=== PATIENT | male | born 1935 | race Caucasian/White ===

== ENCOUNTER 2016-03-27 12:39 | Inpatient (IN) | payer MEDICARE ==
[~2016-03-27] VITALS: Ht 177.8 cm; Wt 105.1 kg
[2016-03-27] VITALS (15 sets, daily range): BP systolic 90–141; BP diastolic 39–63; PULSE 52–94; RESP 18–33; O2SAT 86–99
[~2016-03-27 12:39] MED LIST: ABIR250T PO; ATOR40TA69 PO; Acetaminophen PO; ESCI10TA52 PO; FINA5TAB9 PO; Fentanyl TOPICAL; HYDR-4003 PO; LOSA50TA37 PO; METH5TAB88 PO; NPH,100V11 SUBQ; OXYC-474 PO; OXYC5TAB72 PO; PRD5T PO; WARF5TAB PO; WARF5TAB7 PO
--- NOTE | 2016-03-27 12:44 | ED.REPORT ---
HPI-General Illness Date of Service Mar 27, 2016 ED Provider: Hunter King MD The patient is an 80 year old male with history of type 2 diabetes, diabetic neuropathy, presumed protein C deficiency, prior DVT in right leg, prior arterial embolization of the right arm due to PFO, chronic atrial fibrillation on anticoagulation therapy, coronary artery disease, tachybrady syndrome, permanent pacemaker, sleep apnea, hypertension and metastatic prostate cancer with de dinah metastatic disease, who was brought to the emergency department by EMS for a cough that began to worsen 2 days ago. He has also experienced chest congestion, shortness of breath, and a fever. He was recently admitted to the hospital and discharged to [facility] 1 week ago. He has had pneumonia multiple times in the past and his current symptoms are similar. Nursing Notes Stated Complaint: COUGH, TEMPERATURE Chief Complaint: Respiratory Complaints Nursing Notes Reviewed: Yes Allergies: Coded Allergies: onion (Verified Allergy, Mild, 03/27/16) Scheduled ([Fentanyl]) 1 PATCH PATCH 1 PATCH TOPICAL Q3D Abiraterone Acetate (Zytiga) 250 Mg Tablet 1,000 MG PO DAILY Atorvastatin Calcium (Atorvastatin Calcium) 40 Mg Tablet 40 MG PO DAILY Escitalopram Oxalate (Escitalopram Oxalate) 10 Mg Tablet 10 MG PO DAILY Finasteride (Finasteride) 5 Mg Tablet 5 MG PO DAILY Losartan Potassium (Losartan Potassium) 50 Mg Tablet 50 MG PO DAILY Methylphenidate (Methylphenidate) 5 Mg Tablet 5 MG PO BIDBL NPH, Human Insulin Isophane (HUMulin-N U100 Insulin Vial) 100 Unit/1 Ml Vial 55 UNIT SUBQ MORNING NPH, Human Insulin Isophane (HUMulin-N U100 Insulin Vial) 100 Unit/1 Ml Vial 35 UNIT SUBQ Evening Prednisone (PredniSONE) 5 Mg Tab 5 MG PO BIDWM Warfarin Sodium (Coumadin) 5 Mg Tablet 5 MG PO DAILY Warfarin Sodium (Warfarin Sodium) 5 Mg Tablet 5 MG PO DAILY Scheduled PRN ([Acetaminophen]) 325 MG TABLET 975 MG PO Q6H PRN PRN For Pain Hydrocodone-Acetaminophen 5-325 mg (Hydrocodone-Acetaminophen 5-325 mg) 1 Each Tablet 1 TABLET PO BID PRN PRN For Pain Oxycodone (Roxicodone) 5 Mg Tablet 5 MG PO DAILY PRN PRN For Pain oxyCODONE (oxyCODONE) 5 Mg Tablet 5-10 MG PO Q4H PRN PRN For Moderate Pain General Time Seen by MD: 12:42 Chief Complaint Cough Hx Obtained From: Patient, EMS Arrived By: Ambulance Sudden in Onset?: No Onset Occurred: 2 days ago Symptom Duration: Since onset Severity: Current: Mild Severity: Maximum: Moderate Recent Healthcare: Recent doctor visit, Recent hospitalization Similar Sx Previous: No Past Medical History Past Medical History Notes: CODE status: DNR/DNI Past Medical History Type 2 diabetes, diabetic neuropathy, presumed protein C deficiency, prior DVT in right leg, prior arterial embolization of the right arm due to PFO, chronic atrial fibrillation on anticoagulation therapy, coronary artery disease, tachybrady syndrome, permanent pacemaker, sleep apnea, hypertension and metastatic prostate cancer, initially diagnosed in August 2013, with de dinah metastatic disease. He received palliative radiotherapy to bilateral hips and shoulders in August 2013. Past Surgical History See above Reports: Appendectomy, Inguinal hernia repair, Tonsillectomy Family History Noncontributory Smoking History Former Smoker Social History [facility] Alcohol Use: Denies alcohol use Drug Use: Denies drug use Ambulatory Status Wheelchair Review of Systems +chest congestion Full Review of Systems Constitutional: Reports: Fever Respiratory: Reports: Prod cough, white, Shortness of breath Complete sys rev & neg: except as marked. Physical Exam Vital Signs Vital Signs Date Time Temp Pulse Resp B/P Pulse Ox O2 Delivery O2 Flow Rate FiO2 03/27/16 14:58 37 21 103/45 99 Nasal Cannula 2 03/27/16 13:46 61 21 108/43 98 Nasal Cannula 2 03/27/16 13:09 60 23 94/50 97 Room Air 03/27/16 13:04 36.9 52 23 94/50 98 Nasal Cannula 2 03/27/16 12:49 36.8 76 24 90/39 96 Nasal Cannula 2 Initial VS: Reviewed Head / Eyes: Atraumatic, Normocephalic, PERRL Neck: Supple, Non-tender, Full range of motion Abdomen / GI: Soft, Non-tender, No guarding, No rebound, No distention Lymphatic: No lymphadenopathy Extremities: Vascular intact, Neuro intact Skin: Warm, Dry, No cyanosis Neurologic: Alert, Oriented, Nonfocal Psychiatric: Mood/affect normal, Behavior normal, Normal thought content General/Constitutional: Awake, Alert, Cooperative Appearance / Presentation: Positive: Pale Mentating normally ENT: Airway patent Mouth: Positive: Mucous membranes dry Respiratory / Chest: No respiratory distress Coarse lung sounds bilaterally Cardiovascular: Heart rate NL, Regular rhythm, Heart sounds NL, No murmurs, No rubs, Cap refill not delayed, Peripheral circulation NL, Pulses = bilaterally, No gross BP differential Lower Ext Edema: Positive: Bilateral 2+, Pitting Lower Extremity / Pelvis / MS: Neurologic intact, Vascular intact No calf tenderness Interpretation & Diagnostics Lab Results Interpretation Result Diagram: 03/27/16 1325 03/27/16 1325 Test 03/27/16 13:25 White Blood Count 12.6th/mm3 (3.8-10.1) Red Blood Count 4.26mil/mm3 (4.40-5.80) Hemoglobin 13.4g/dL (13.8-17.2) Hematocrit 41.5% (41.0-50.0) Mean Corpuscular Volume 97.4fL (81-100) Mean Corpuscular Hemoglobin 31.5pg (27.0-35.0) Mean Corpuscular Hemoglobin Concent 32.3% (32.0-37.0) Red Cell Distribution Width 15.0% (12.3-15.4) Platelet Count 196bil/L (150-400) Neutrophils (%) (Auto) 86.7% (40-74) Lymphocytes (%) (Auto) 7.4% (14-46) Monocytes (%) (Auto) 5.2% (4-12) Eosinophils (%) (Auto) 0.3% (0-5) Basophils (%) (Auto) 0.2% (0-3) Prothrombin Time 25.9sec (8.1-12.5) Prothromb Time International Ratio 2.38ratio Activated Partial Thromboplast Time 33.0sec (22.8-33.0) Sodium Level 138mEq/L (134-144) Potassium Level 4.6mEq/L (3.5-5.2) Chloride Level 103mEq/L (97-108) Carbon Dioxide Level 25mmol/L (18-29) Blood Urea Nitrogen 24mg/dL (8-27) Creatinine 0.94mg/dL (0.76-1.27) Estimat Glomerular Filtration Rate 82mL/min (>59) Glucose Level 113mg/dL (60-99) Lactic Acid Level 1.7mmol/L (0.4-2.0) Calcium Level 7.9mg/dL (8.5-10.1) Phosphorus Level 2.0mg/dL (2.5-4.9) Magnesium Level 2.1mg/dL (1.6-2.6) Total Bilirubin 1.2mg/dL (0.0-1.2) Aspartate Amino Transf (AST/SGOT) 24U/L (0-50) Alanine Aminotransferase (ALT/SGPT) 11U/L (0-44) Alkaline Phosphatase 104U/L (25-160) Troponin T < 0.010ug/L (0.0-0.011) Pro-B-Type Natriuretic Peptide 2834pg/mL (0-486) Total Protein 5.4g/dL (6.4-8.4) Albumin 2.7g/dL (3.4-5.0) Procalcitonin 0.11ng/mL (See Comment) ECG Interpretation ECG Interpretation: Ventircular paced rhythm at a rate of 79 bpm No prior EKG for comparison Time: 14:00 Interpreted by: ED physician X-Ray Chest Interpretation Chest Xray Interpretation: IMPRESSION: Left basilar atelectasis versus pneumonia. Please correlate with clinical and laboratory data. Dictated by: Lana Grimes MD, PhD on 03/27/2016 at 14:20 Interpretation / Wet Read by: Interpret - Radiologist Re-Eval/Medical Decision Med Decision/Clinical Course The patient is an 80 year old male with history of type 2 diabetes, diabetic neuropathy, presumed protein C deficiency, prior DVT in right leg, prior arterial embolization of the right arm due to PFO, chronic atrial fibrillation on anticoagulation therapy, coronary artery disease, tachybrady syndrome, permanent pacemaker, sleep apnea, hypertension and metastatic prostate cancer with de dinah metastatic disease, who was brought to the emergency department by EMS for a cough that began to worsen 2 days ago. He has also experienced chest congestion, shortness of breath, and a fever. He was recently admitted to the hospital and discharged to [facility] 1 week ago. He has had pneumonia multiple times in the past and his current symptoms are similar. On arrival the patient is quite hypotensive with a map of 45 though is afebrile in setting of recently receiving Tylenol. IV access was obtained and the patient was aggressively fluid resuscitated with improvement in map to the 60s. The patient had good mentation. CXR left lower lobe pneumonia LABS: CBC: leukocytosis of 12.6, hematocrit 41.5, CMP: glucose 113, negative troponin, BNP 2834, procalcitonin 0.11, coags normal, lactic acid 1.7 Given the patient's recent hospitalization in long-term care facility I initiated IV vancomycin and Zosyn. Blood cultures were sent prior to initiating IV antibiotics. The patient has stabilized quite well with fluid resuscitation I feel that he requires ongoing observation in an ICU setting given his initial presentation of profound hypotension. Due to lack of ICU beds the patient was discussed with Dr. Kidd at [facility] and accepted for further management. EMTALA paperwork was completed prior to transfer. The patient was transferred in stable condition. Source of Hx: Old records, EMS Time of Eval: 13:34 Re-Evaluation/Progress Note: Rechecked the patient. Discussed the patient's case with his children. They understand and agree [facility] plan for transfer to [place] if needed. Time of Eval: 14:36 Re-Evaluation/Progress Note: Discussed plan for transfer. All questions were addressed. Consultation #1: Call Returned at: 13:06 Note: Spoke with Dr. Kidd from [facility]. We will update him as the workup is completed. Consultation #2: Call Returned at: 14:30 Note: Spoke with Dr. Kidd at [facility]. He accepts the patient for transfer. Counseled Regarding: Diagnosis, Lab results, Need for transfer Discharge & Departure Primary Impression: Pneumonia Pneumonia type: due to unspecified organism Laterality: left Lung location : lower lobe of lung Qualified Code: J18.9 - Pneumonia, unspecified organism Additional Impressions: Hypotension Hypotension type: unspecified hypotension type Qualified Code: I95.9 - Hypotension, unspecified Sepsis Sepsis type: sepsis due to unspecified organism Qualified Code: A41.9 - Sepsis, unspecified organism Prostate cancer metastatic to bone Disposition: Transfer, Acute Care Facility Receiving Hospital: [facility] Transfer Accepted: Yes Transfer Accepted at: 14:30 Transfer Reason: Higher level of care Spoke with: Attending physician (Dr. Kidd) Patient Status: Stable Patient Informed: Yes Discharge Condition All VS Reviewed: Yes Condition: Stable Crit Care Except Billable Proc Time Spent: 135-164 minutes Services Performed: Patient management by me, Time spent at bedside, Reviewing test results, Reviewing imaging, Discussing patient care, Documentation in record, Time with fam/surrogate Scribe Attestation Portions of this note were transcribed by Alyssa Moise. I, Dr. King personally performed the history, physical exam and medical decision-making; I reviewed and confirmed the accuracy of the information in the transcribed note. Signed by: Claudine King, 03/27/2016 and 1440. Hunter King MD Mar 27, 2016 12:44 Alyssa Moise Mar 27, 2016 12:49
[2016-03-27] MEDS ORDERED: 0.9% Sodium Chloride 1,000 ML IV SCH (12:55)
[2016-03-27 13:31] LABS: BASOPHILS % (AUTO) 0.2 % (0-3); EOSINOPHILS % (AUTO) 0.3 % (0-5); MONOCYTES % (AUTO) 5.2 % (4-12); Mean Corpuscular Hemoglobin 31.5 pg (27.0-35.0); Mean Corpuscular Volume 97.4 fL (81-100); NEUTROPHILS % (AUTO) 86.7 % (40-74); Platelet Count 196 bil/L (150-400)
[2016-03-27 13:53] LABS: INR 2.38 ratio
[2016-03-27 14:12] LABS: Magnesium 2.1 mg/dL (1.6-2.6)
[2016-03-27 14:14] LABS: TROPONIN T < 0.010 ug/L (0.0-0.011)
--- NOTE | 2016-03-27 14:23 | DRSVH ---
PROCEDURE: X-RAY CHEST ONE VIEW, PORTABLE ([id number]) INDICATIONS: DYSPNEA TECHNIQUE: One view of the chest was acquired. COMPARISON: [facility], CR, XR CHEST 1VW (PORTABLE), 03/11/2016, 7:33. FINDINGS: Surgical changes and devices: Cardiac pacer stable in appearance. Lungs and pleura: No pleural effusions or pneumothorax. Patchy opacity noted in the left lung base w hich could represent atelectasis versus pneumonia. Mediastinum: Mediastinal contours appear normal. Heart size is normal. Bones and chest wall: No suspicious bony lesions. Overlying soft tissues appear unremarkable. IMPRESSION: Left basilar atelectasis versus pneumonia. Please correlate with clinical and laboratory data. Dictated by: Lana Grimes MD, PhD on 03/27/2016 at 14:20 Approved by: Lana Grimes MD, PhD on 03/27/2016 at 14:20
[2016-03-27] MEDS ORDERED: Vancomycin Dose per Pharmacist XX ONE (14:30)
[2016-03-27] MEDS ORDERED: Piperacillin-Tazo 3.375 Gm Inj 3.375 GM in Dextrose 5% Minibag Plus 50 ML IV ONE (14:30)
[2016-03-27] MEDS ORDERED: HYDROmorphone 0.5 mg/0.5 mL iSecure Syringe IVPUSH SCH (14:55)
[2016-03-27] MEDS ORDERED: Furosemide 10 mg/mL 4 mL Inj ONE (16:39)
[2016-03-27] MEDS ORDERED: Furosemide 10 mg/mL 2 mL Inj IVPUSH ONE (16:40)
[2016-03-27] MEDS ORDERED: Furosemide 10 mg/mL 4 mL Inj IVPUSH ONE (16:45)
--- NOTE | 2016-03-27 17:37 | DRSVH ---
PROCEDURE: X-RAY CHEST ONE VIEW, PORTABLE ([id number]) INDICATIONS: New SEVERE SOB TECHNIQUE: One view of the chest was acquired. COMPARISON: [facility], CR, XR CHEST 1VW (PORTABLE), 03/27/2016, 13:21. FINDINGS: Surgical changes and devices: There is a single lead cardiac pacemaker. Lungs and pleura: Left basilar infiltrate suspicious for pneumonia. No pleural effusions or pneumoth orax. Mediastinum: Mediastinal contours appear normal. Heart size is normal. Bones and chest wall: Sclerosis in thoracic spine and right scapula suspicious for metastases. Overl reyes soft tissues appear unremarkable. IMPRESSION: Left lower lobe pneumonia. Dictated by: Bret Vazquez M.D. on 03/27/2016 at 17:35 Approved by: Bret Vazquez M.D. on 03/27/2016 at 17:35
[2016-03-27 17:38] LABS: APPEARANCE,URINE CLEAR (CLEAR,HAZY); COLOR,URINE DARK YELLOW (YELLOW)
[2016-03-27 17:39] LABS: OCCULT BLOOD,URINE TRACE (NEGATIVE); UROBILINOGEN,URINE NORMAL (NORMAL)
[2016-03-27] MEDS ORDERED: FENT1PAT6 TRANSDERM (18:45)
[2016-03-27] MEDS ORDERED: ACET325T51 PO (18:45)
[2016-03-27] MEDS ORDERED: FENT1PAT7 TRANSDERM (18:45)
[2016-03-27] MEDS ORDERED: WARF6TAB6 PO (18:52)
[2016-03-27] MEDS ORDERED: Polyethylene Glycol (PEG) 17 Gm Powder PO PRN (19:30)
[2016-03-27] MEDS ORDERED: Alum-Mag Hydrox-Simeth 30 mL Suspension PO PRN (19:30)
[2016-03-27] MEDS: 0.9% Sodium Chloride 1,000 ML IV SCH (19:30)
[2016-03-27] MEDS ORDERED: Albuterol 2.5 mg/3 mL Inhalation Solution NEB PRN (19:30)
--- NOTE | 2016-03-27 19:37 | NUR ---
Arrival Patient arrived to the floor at 1905 via gurney. Patient having mild resp difficulty, O 2 @ 3 L. Lungs course bilat. Patient incont of stool apon arrival. Kingsley patent steffen uop. IV SL x 2. Tele placed and WT done. Report given to ciera HARDY.
--- NOTE | 2016-03-27 19:42 | PROG NOTE ---
[address] [address] PROGRESS NOTE PATIENT: VANESSA DOSS : 1935 MR#: [id number] ADMIT: 03/27/2016 JOB ID: [id number] DATE: 03/27/2016 INPATIENT MEDICAL ONCOLOGY PROGRESS REPORT: DIAGNOSES: 1. Current admission for sepsis syndrome due to left lower lobe pneumonia. 2. Metastatic prostate cancer. HISTORY OF PRESENT ILLNESS: The patient is an 80-year-old gentleman with metastatic prostate cancer receiving secondary hormonal therapy with abiraterone and prednisone combination who was recently admitted to hospital for acute right hip pain and was evaluated for fracture and other etiologies. He was discharged on March 16 to [facility]. Over the past couple of days he has been having a productive cough and congestion. This morning he was febrile according to his daughter. He was dyspneic and tachycardic. He was brought by the EMS to ER and is being admitted to PCU. On arrival he was quite hypotensive with mean arterial pressure of 45. He was afebrile. He was given IV fluids and developed pulmonary edema. He has two chest x-rays, one at 2:20 and the other at 5:30 p.m., both demonstrating left lower lobe pneumonia. ProBNP is high at 2800. Troponin-T is negative. EKG shows ventricular paced rhythm at 80 per minute. Currently he has been placed on BiPAP for pulmonary edema and he is more comfortable. He opens eyes and knows where he is. His blood pressure has improved. OBJECTIVE: Most recent vitals: Blood pressure 112/44, heart rate 58, and respiratory rate 18. O2 saturation is 95% on 3 L. LABORATORY DATA: Chemistry is unremarkable other than low albumin. Leukocyte count is elevated at 12,600, with 87% neutrophils. Procalcitonin is only 0.11. IMPRESSION AND PLAN: Atypical left lower lobe pneumonia. His procalcitonin is actually low. Reportedly he had fever this morning but not so far in the hospital. He has been given IV antibiotics. This could be viral atypical pneumonia. With regard to metastatic prostate cancer, the patient is not on chemotherapy. He is on a hormonal agent called abiraterone that is not immunosuppressive. That agent does not have to be continued during his acute illness. He is also on prednisone 5 mg b.i.d. and the dosage of that will need to be increased during this acute illness. There have been many conversations with regards to comfort care in the setting of hospice for this gentleman and if he decides to transition to comfort care I would fully support that. Otherwise we should treat his acute illness and he can continue his oral regimen for his metastatic prostate cancer.
--- NOTE | 2016-03-27 19:56 | PCM.HPMED ---
Subjective Date of Service Mar 27, 2016 Primary Provider: Admitting Physician: Nirmal Mooney MD Primary Care Physician: Nopcp Attending Physician: Nirmal Mooney MD Admit Status: From the Emergency Department, Full Admit, [facility] Telemetry Chief Complaint: Decreased level of consciousness, cough, hypotension, hypoxia. History of Present Illness: This is an 80-year-old gentleman with a recent admission for pain control related to his metastatic prostate cancer. He was discharged on fentanyl 37.5 g transdermal to a care home facility about 10 days ago. He had been doing reasonable until this morning. He then became altered, had diaphoresis and fever. He did have some lethargy and a sore throat yesterday. The family was concerned and insisted on transfer to the ER. There he was found to have infiltrates, evidence of acute sepsis with profound hypotension requiring aggressive fluid resuscitation. When the patient is seen on the deshpande she is breathing in a labored fashion and difficult to arouse. Presumably some of this is sedation from analgesics given in the ED. Chest x-ray did indicate infiltrates. The patient's family is in the room. All history is obtained from them. The patient's daughter Janina who is DURABLE POWER OF PRODUCT MARKETING EXECUTIVE for healthcare is quite specific on his level of care. He is DO NOT INTUBATE, DO NOT RESUSCITATE. He has had a very poor quality of life since a recent escalation of his pain leading to his previous hospital admission. BiPAP is in okay alternative for ventilation if required is noted from family tonight. If the patient is unable to give any history. Review of Systems: Not obtainable Allergies Coded Allergies: onion (Verified Allergy, Mild, 03/27/16) Home Medications onion (Verified Allergy, Mild, 03/27/16) Scheduled ([Fentanyl]) 1 PATCH PATCH 1 PATCH TOPICAL Q3D Abiraterone Acetate (Zytiga) 250 Mg Tablet 1,000 MG PO DAILY Atorvastatin Calcium (Atorvastatin Calcium) 40 Mg Tablet 40 MG PO DAILY Escitalopram Oxalate (Escitalopram Oxalate) 10 Mg Tablet 10 MG PO DAILY Finasteride (Finasteride) 5 Mg Tablet 5 MG PO DAILY Losartan Potassium (Losartan Potassium) 50 Mg Tablet 50 MG PO DAILY Methylphenidate (Methylphenidate) 5 Mg Tablet 5 MG PO BIDBL NPH, Human Insulin Isophane (HUMulin-N U100 Insulin Vial) 100 Unit/1 Ml Vial 55 UNIT SUBQ MORNING NPH, Human Insulin Isophane (HUMulin-N U100 Insulin Vial) 100 Unit/1 Ml Vial 35 UNIT SUBQ Evening Prednisone (PredniSONE) 5 Mg Tab 5 MG PO BIDWM Warfarin Sodium (Coumadin) 5 Mg Tablet 5 MG PO DAILY Warfarin Sodium (Warfarin Sodium) 5 Mg Tablet 5 MG PO DAILY Scheduled PRN ([Acetaminophen]) 325 MG TABLET 975 MG PO Q6H PRN PRN For Pain Hydrocodone-Acetaminophen 5-325 mg (Hydrocodone-Acetaminophen 5-325 mg) 1 Each Tablet 1 TABLET PO BID PRN PRN For Pain Oxycodone (Roxicodone) 5 Mg Tablet 5 MG PO DAILY PRN PRN For Pain oxyCODONE (oxyCODONE) 5 Mg Tablet 5-10 MG PO Q4H PRN PRN For Moderate Pain PMH 1. Metastatic prostate cancer. Patient has extensive bony metastases with severe pain.. 2. CAD. 3. PFO. 4. Atrial fibrillation. 5. Asymptomatic of her tachybradycardia syndrome. 6. YVONNE. Family History Not obtainable Social History Hx Alcohol Use: No (quit 1984) Hx Substance Use: No Hx Tobacco Use: No Smoking Status: Former Smoker Exam Vital Signs Vital Sign - Last Date Time Temp Pulse Resp B/P Pulse Ox O2 Delivery O2 Flow Rate FiO2 03/27/16 19:05 94 03/27/16 18:28 21 103/67 99 BiPAP 03/27/16 17:28 3 03/27/16 17:00 70 03/27/16 14:58 37 Exam Patient is very sedated. He has labored breathing. He is commencing a little bit. He opens his eyes when his name is called. Normal skull. External nose and ears. Anicteric sclera, symmetric pupils. Oropharynx dry mucosa Neck is supple normal thyroid no adenopathy Lungs scattered rhonchi, increased rate and effort Heart is regular without murmur Abdomen is distended without focal tenderness. No organomegaly. Extremities with 1+ edema. No bruising or petechiae or other rash is noted. Joints not swollen or deformed He moves arms and legs spontaneously. Lab and Diagnostics Result Diagram: 03/27/16 1325 03/27/16 1325 X-Rays, CTs and MRIs Chest x-ray reveals a left lower lobe infiltrate Assessment & Plan 1. Pneumonia. Presumed age. POA. We will treat him with standard triple therapy antibiotics. 2. Acute hypoxic respiratory failure. POA. Supportive oxygen and BiPAP from if required. DO NOT INTUBATE. 3. Metastatic prostate cancer. POA. Continue his current pain regimen and add IV morphine as needed for pain. 4. Defibrillation, chronic. POA. Follow clinically. 5. Hypertension. POA. Follow clinically. 6. Obstructive sleep apnea. POA. Noninvasive pressure ventilation will be used only clinically denied for his acute hypoxic respiratory failure. Patient is admitted inpatient status with an anticipated length of stay of over 2 nights. He is DO NOT RESUSCITATE, DO NOT INTUBATE. BiPAP and CPAP are acceptable. The patient understands that his prognosis is poor and is guarded. They also understand that he is having a severe deterioration to the quality of his life. They appear to be receptive to palliative care at this point he feels improved dramatically. Pain Evaluation: Adequate Pain Control Resuscitation Status: DNR/DNI:Do Not Resuscitate/Intubate Time spent 40 minutes Nirmal Mooney MD Mar 27, 2016 19:56
[2016-03-27] MEDS ORDERED: Ondansetron 2 mg/mL 2 mL Inj IVPUSH PRN (21:00)
--- NOTE | 2016-03-27 21:18 | DRSVH ---
PROCEDURE: X-RAY CHEST ONE VIEW, PORTABLE ([id number]) INDICATIONS: dyspnea TECHNIQUE: One view of the chest was acquired. COMPARISON: [facility], CR, XR CHEST 1VW (PORTABLE), 03/27/2016, 16:52. FINDINGS: Surgical changes and devices: Cardiac pacemaker in expected position. Lungs and pleura: Left basilar opacity suspicious for pneumonia or aspiration. No pleural effusions or pneumothorax. Lungs are clear. Mediastinum: Mediastinal contours appear normal. Heart size is normal. Bones and chest wall: Increased bone density in the thoracic spine, both scapulae and clavicles suspi cious metastasis. Overlying soft tissues appear unremarkable. IMPRESSION: Left basilar opacity and simple pneumonia or aspiration. Dictated by: Bret Vazquez M.D. on 03/27/2016 at 21:17 Approved by: Bret Vazquez M.D. on 03/27/2016 at 21:17
[2016-03-28] VITALS (7 sets, daily range): BP systolic 92–118; BP diastolic 36–58; PULSE 18–81; RESP 18–24; O2SAT 93–99
[2016-03-28] MEDS: Heparin 5,000 Unit/mL Inj SUBQ SCH ×3 (01:29→18:02)
[2016-03-28] MEDS: Piperacillin-Tazo 3.375 Gm Inj 3.375 GM in Dextrose 5% Minibag Plus 50 ML IV SCH ×3 (01:30→18:02)
[2016-03-28 01:45] LABS: BASOPHILS % (AUTO) 0.1 % (0-3); EOSINOPHILS % (AUTO) 0.1 % (0-5); MONOCYTES % (AUTO) 4.5 % (4-12); Mean Corpuscular Hemoglobin 30.8 pg (27.0-35.0); Mean Corpuscular Volume 96.3 fL (81-100); NEUTROPHILS % (AUTO) 86.9 % (40-74); Platelet Count 185 bil/L (150-400)
--- NOTE | 2016-03-28 01:45 | NUR ---
BiPAP/SUCTION/TEMP Pt arrived during shift change. RT decided against placing on BiPAP due to pt vomiting before arriving to [facility]. Lungs coarse bilaterally, pt unable to cough out secretions. Pt is a DNR with BiPAP/suction/antibiotic as interventions. Pt has small amounts of yellow, frothy secretions. Pt spiked a temp of 101.7, blood cultures x2 were drawn @0100. IV fluids and antibiotics running. Unable to hold pt's attention, no po meds administered. NPO. Pt put on MP50, O2 sats in mid 90's on 4L NC at this time. Family at the bedside. Addendum: 03/28/16 at 0605 by YESENIA CALDERON RN Assisted CLEANING SPECIALIST with bed change and large amounts of secretions were suctioned throughout change. Pt de-sated and sustained in the mid 80's on 7L O2 NC. Lungs coarse bilaterally.
[2016-03-28] MEDS: 0.9% Sodium Chloride 1,000 ML IV SCH ×2 (05:30→09:25)
[2016-03-28] MEDS ORDERED: Vancomycin Dose per Pharmacist XX SCH (08:30)
[2016-03-28] MEDS: HYDROmorphone 0.5 mg/0.5 mL iSecure Syringe IVPUSH PRN ×3 (11:26→18:04)
[2016-03-28] MEDS ORDERED: Acetaminophen IV 1,000 MG in IV Premix 1 EACH IV PRN (11:55)
--- NOTE | 2016-03-28 12:27 | NUR ---
Temp/BP/Suction Patient temperature fluctuating between 99 and 100. Notified MD. IV Tylenol ordered. BP fluctuating between 102/40 to 130/35. MD notified. SPO2 at 92%, patient having difficulty clearing throat, attempted to suction several times, unsuccessful notified MD. Recommended calling RT for help. RT in room at approximately 1150.
--- NOTE | 2016-03-28 12:59 | PCM.PNMED ---
Subjective Date of Service Mar 28, 2016 Subjective The patient is little more awake today but not speaking. He is not really able to follow commands or converse. Subjective and ROS not obtainable. Exam Vital Signs Vital Sign - Last Date Time Temp Pulse Resp B/P Pulse Ox O2 Delivery O2 Flow Rate FiO2 03/28/16 12:04 37.5 75 18 95/41 93 Room Air 6.00 03/27/16 17:00 70 Intake and Output 03/27/16 03/27/16 03/28/16 Cumulative From/Thru 15:00 23:00 07:00 03/27/16 12:49 - 03/28/16 06:19 Intake Total 1000 ml 500 ml 750 ml 2250 ml Output Total 900 ml 900 ml Balance 1000 ml 500 ml -150 ml 1350 ml Intake Oral 0 ml 0 ml IV Total 1000 ml 500 ml 750 ml 2250 ml Output Urine Total 900 ml 900 ml # Bowel Movements 1 1 Exam The patient is awake appears relatively comfortable Skull normal Anicteric sclerae, symmetric pupils. Oropharynx unremarkable. Neck is supple no adenopathy. Lungs with rhonchi and slight increase labor but better. Heart is regular without murmur Abdomen soft nondistended extremities are free of edema. IVs and Medications Medications Reviewed: Medications were reviewed in detail Lab and Diagnostics Result Diagram: 03/28/1612803/28/16128 X-Rays, CTs and MRIs Chest x-ray reveals a left lower lobe infiltrate Assessment & Plan 1. Pneumonia. Presumed HCAP. POA. We will continue to treat him with standard triple therapy antibiotics (Vaco, levo, Zosyn). The patient is having a lot of upper airway secretions and cannot take cough adequate to clear these on a regular basis. We are attempting to assist with RT's help and suctioning. 2. Acute hypoxic respiratory failure. POA. Supportive oxygen and BiPAP from if required. DO NOT INTUBATE. 3. Metastatic prostate cancer. POA. Continue his current pain regimen and add IV morphine as needed for pain. The patient has had more pain problems we are continuing the fentanyl at 37.5 g Transderm. We have escalated to IV hydromorphone today. Palliative care will visit with the patient. They had met him on his last visit. 4. Atrial fibrillation, chronic. POA. Follow clinically. 5. Hypertension. POA. Follow clinically. 6. Obstructive sleep apnea. POA. Noninvasive pressure ventilation will be used only clinically denied for his acute hypoxic respiratory failure. Patient is admitted inpatient status with an anticipated length of stay of over 2 nights. He is DO NOT RESUSCITATE, DO NOT INTUBATE. BiPAP and CPAP are acceptable. The patient understands that his prognosis is poor and is guarded. They also understand that he is having a severe deterioration to the quality of his life. They appear to be receptive to palliative care at this point he feels improved dramatically. Pain Evaluation: Adequate Pain Control Resuscitation Status: DNR/DNI:Do Not Resuscitate/Intubate Time spent 30 min Nirmal Mooney MD Mar 28, 2016 12:58
[2016-03-28] MEDS: Vancomycin Inj 1,750 MG in Dextrose 5% 500 ML IV SCH (13:00)
[2016-03-28] MEDS: Hydrocortisone 50 mg/mL 2 mL Inj IVPUSH SCH ×2 (15:09→20:18)
[2016-03-28] MEDS: levoFLOXacin Inj 750 MG in IV Premix 1 EACH IV SCH (16:05)
--- NOTE | 2016-03-28 19:11 | NUR ---
LOC Improvement Patient's LOC improved this shift. Start of shift patient able to follow simple commands, unable to talk. Patient now able to talk intermittently with this RN, reaches for this RN's hand, moves arms independently. Pt visibly weak. Daughter stated this is night and day from last night. Patient able to make requests and to voice he is in pain, unable to put a number on his pain. This RN using faces for pain scale. Patient is able to track conversation, chuckled a few times this shift and smiled.
--- NOTE | 2016-03-28 19:17 | PROG NOTE ---
[address] [address] PROGRESS NOTE PATIENT: VANESSA DOSS : 1935 MR#: [id number] ADMIT: 03/27/2016 JOB ID: [id number] DATE: 03/28/2016 DIAGNOSES: 1. Current admission for severe left lower lobe healthcare-associated pneumonia associated with sepsis syndrome. 2. Metastatic prostate cancer. SUBJECTIVE: The patient vomited into a BiPAP face mask and aspirated. Respiratory therapist suctioned quite a bit out of his lungs. He was complaining of chest pain and right hip pain earlier today, according to his daughter. Currently, he is in a deep sleep and appears to be breathing comfortably. OBJECTIVE: Currently asleep. His fever seems to be resolving. Temperature was 37.5 at noon and 37 at 5 p.m. Respiratory rate has decreased to about 20. Blood pressure remains normal. His O2 requirement has decreased to 6 L by nasal cannula and he is satting 99%. LABORATORY DATA: Leukocytosis has improved. Chemistry is normal except low albumin. Procalcitonin is 5.0, and therefore perhaps yesterday's value was an error. IMPRESSION AND RECOMMENDATIONS: 1. Severe healthcare-associated pneumonia in the left lower lobe associated with sepsis syndrome. Despite aspiration episode, he seems to be improving and resting. O2 requirement has decreased. Continue current antibiotic therapy. 2. The patient has been placed on high-dose IV glucocorticoids. At baseline he is only on prednisone 5 mg b.i.d. Therefore hydrocortisone 100 mg t.i.d. is quite a big dose for him, and I do not think it is necessary. I recommend hydrocortisone at most 20 mg IV every 12 hours.
[2016-03-29] VITALS (8 sets, daily range): BP systolic 104–111; BP diastolic 58–66; PULSE 70–95; RESP 16–20; O2SAT 95–100
[2016-03-29] MEDS: Piperacillin-Tazo 3.375 Gm Inj 3.375 GM in Dextrose 5% Minibag Plus 50 ML IV SCH ×3 (01:19→20:01)
[2016-03-29] MEDS: Heparin 5,000 Unit/mL Inj SUBQ SCH ×3 (01:20→19:11)
[2016-03-29] MEDS: Hydrocortisone 50 mg/mL 2 mL Inj IVPUSH SCH ×3 (03:56→20:01)
[2016-03-29] MEDS: Vancomycin Inj 1,750 MG in Dextrose 5% 500 ML IV SCH (03:57)
[2016-03-29] MEDS: 0.9% Sodium Chloride 1,000 ML IV SCH ×3 (06:15→21:30)
--- NOTE | 2016-03-29 06:17 | NUR ---
LOC Patient somnolent at start of shift. Sleeping through care. Gradual increase in alertness. Patient speaking in short, clear sentences. Able to make himself understood. Denies pain; fentanyl patches in place. Refusing turns. SpO2 97-99% on 6 L O2. Continue to monitor.
--- NOTE | 2016-03-29 10:07 | NUR ---
[facility] Signed
--- NOTE | 2016-03-29 10:10 | NUR ---
Social Work: Initial Assessment D: Per EMR review, pt is an 80 year old male admitted for sepsis, pneumonia. Pt is [employer] Medicare with no LTC insurance or VA benefits. PCP is not listed. NOK is Janina Keane, Dtr, . Advanced directives not on file- INSIDE FINISHER requested them from pt's daughter. Readmit score is high, 7/8. INSIDE FINISHER met with pt and daughter at bedside. Sw role explained; See initial assessment. Pt is a readmit and was discharged last week to [facility]. Pt's family states that they will not be sending the pt back to [facility] and that they are working with admission staff at [facility] for possible admission there. Based on information thus far, INSIDE FINISHER encouraged pt's daughter to dual plan with alternate SNF option. INSIDE FINISHER provided SNF Choice listed and Medicare.gov website. She is aware that [facility], [facility] and [facility] are the only contracted facilities in the area. She does not wish to send the pt outside of [facility]. INSIDE FINISHER provided referral and access to [facility] and encouraged daughter to tour facilities this weekend. PPW on chart PASSR Complete A: Pt who will likely require skilled rehab at time of discharge based on current needs. P: Anticipate discharge to skilled rehab, [facility] reviewing. RETA Anderson Addendum: 03/29/16 at 1018 by JUDSON MURO SS Amended: Links added.
[2016-03-29] MEDS: levoFLOXacin Inj 750 MG in IV Premix 1 EACH IV SCH (10:25)
--- NOTE | 2016-03-29 10:35 | NUR ---
LOC Patient alert and oriented times three this shift. Patient answering questions, speaking in full sentences.
--- NOTE | 2016-03-29 11:28 | NUR ---
NUTRITION ASSESSMENT: ASSESS:80 YO male admitted with pneumonia, presumed HCAP. The patient is having considerable upper airway secretions and cannot cough sufficiently to clear these on a regular basis. RT assisting with suctioning and supportive oxygen. BiPAP may potentially be required. Code status: DNR / DNI. Palliative Team involved. PMHx:Metastatic prostate cancer with extensive bony metastases, severe pain, CAD, A-fib, YVONNE, HTN. DIET:NPO x 2 D. LABS: Reviewed. CO2 17, BUN 57, Cr 2.69, Glu 418, Ca 6.6. MEDICATIONS: Reviewed. Solu-cortef, morphine, fentanyl. NUTRITION FOCUSED PHYSICAL ASSESSMENT: GI symptoms / stool: BM x 1 today.Porfirio: 11. Skin Integrity: No issues reported. ANTHROPOMETRICS: Current Wt: 105.9 kgBMI: 33.0 kg/m2. Admit weight: 107.0 kg. Weight loss: 1.5 kg x 9 months. IBW: 75.5 kg (142% IBW) ESTIMATED NEEDS (OBESITY, CANCER, RENAL DISEASE): Calories: 1886 - 2264 kcal (25 - 30 kcal / kg IBW) Protein: 91 - 113 g protein (1.2 - 1.5 g / kg IBW) NUTRITION DIAGNOSIS: 1)Inadequate oral intake related to metastatic prostate cancer pain, respiratory difficulties, as evidenced by NPO status, 1.5 kg weight loss x 9 months. INTERVENTION: 1) Case Management is working with patient and on SNF placement. 2) In the event diet unable to be advanced over weekend, recommend MD discuss short-term nutrition support potential with patient and . MONITOR/EVALUATE: Diet advance / tolerance, PO intake, labs, GI/nutrition status. Follow up per high nutrition risk guidelines.
--- NOTE | 2016-03-29 12:33 | PCM.PNMED ---
Subjective Date of Service Mar 29, 2016 Subjective The patient is not more much more alert today. He is able to verbalize and communicate which is a dramatic improvement. He denies any shortness of breath. His cough is vastly improved but remains present and is dry. His pain is much improved. He required no when necessary analgesia overnight. No fevers or chills. Minimal confusion. Exam Vital Signs Vital Sign - Last Date Time Temp Pulse Resp B/P Pulse Ox O2 Delivery O2 Flow Rate FiO2 03/29/16 09:35 36.4 72 111/61 99 03/29/16 09:35 Supplement Oxygen 03/29/16 03:19 20 6.00 03/27/16 17:00 70 Intake and Output 03/28/16 03/28/16 03/29/16 Cumulative From/Thru 15:00 23:00 07:00 03/27/16 12:49 - 03/29/16 06:00 Intake Total 700 ml 1498 ml 4448 ml Output Total 200 ml 1100 ml Balance 700 ml 1298 ml 3348 ml Intake Oral 0 ml 0 ml IV Total 700 ml 1498 ml 4448 ml Output Urine Total 200 ml 1100 ml # Bowel Movements 1 2 Exam Alert and oriented 3. Able to speak. No distress. Anicteric sclerae, symmetric pupils Oropharynx unremarkable Lungs are clear with scattered rhonchi but normal effort and rate Heart is regular without murmur gallop or rub. Abdomen is distended but nontender. Extremities with 1+ edema. Radial pulses IVs and Medications Medications Reviewed: Medications were reviewed in detail Lab and Diagnostics Result Diagram: 03/28/16 0129 03/29/16 0440 X-Rays, CTs and MRIs Chest x-ray reveals a left lower lobe infiltrate Assessment & Plan 1. Pneumonia. Presumed HCAP. POA. This is improved dramatically overnight. We will continue on the current antimicrobial regimen. There is no specific microbiologic data to change our course. Secretions are much better. He has required no active suctioning in the last several hours. 2. Acute hypoxic respiratory failure. POA. Supportive oxygen and BiPAP from if required. DO NOT INTUBATE. Patient continues to improve. We will anticipate only supplemental oxygen at this point. 3. Metastatic prostate cancer. POA. Continue his current pain regimen and add IV morphine as needed for pain. The patient has had more pain problems we are continuing the fentanyl at 37.5 g Transderm. The patient appears to have attained good comfort control and his chronic Transderm fentanyl without dosage change. We will follow clinically. 4. Atrial fibrillation, chronic. POA. Stable. Follow clinically. 5. Hypertension. POA. Stable. Follow clinically. 6. Obstructive sleep apnea. POA. Noninvasive pressure ventilation will be used only clinically denied for his acute hypoxic respiratory failure. 7. Hyperglycemia. POA. Will increase patient's nutritional lispro and correctional lispro. We will also add a larger dose of Lantus insulin. 8. Acute kidney injury. This is new in the last 24 hours. The patient was given vancomycin. At this point his fluid status appears to be fairly good. We will stop the vancomycin and follow clinically. Follow his renal indices and continue fluid resuscitation. We will check urine for eosinophils. Discharge planning. The patient's family does not want him to go back to [facility]. We will recommend a disposition plan. Patient is admitted inpatient status with an anticipated length of stay of over 2 nights. He is DO NOT RESUSCITATE, DO NOT INTUBATE. BiPAP and CPAP are acceptable. The patient understands that his prognosis is poor and is guarded. They also understand that he is having a severe deterioration to the quality of his life. They appear to be receptive to palliative care at this point he feels improved dramatically. Pain Evaluation: Adequate Pain Control Resuscitation Status: DNR/DNI:Do Not Resuscitate/Intubate Time spent 30 minutes Nirmal Mooney MD Mar 29, 2016 12:33
[2016-03-29] MEDS ORDERED: Glucose 40% Oral Gel 15 Gm Tube PO PRN (12:50)
--- NOTE | 2016-03-29 16:16 | NUR ---
Evaluation completed. Please go to "Notes" then click on "Assessments and Notes" (bottom left corner of screen). Then select appropriate discipline tab on top of screen.
[2016-03-29] MEDS: Insulin LISPRO 300 Unit/3 mL Inj SUBQ SCH ×2 (18:01→22:09)
[2016-03-29] MEDS ORDERED: Vancomycin Serum Trough XX ONE (20:30)
[2016-03-29] MEDS: Insulin GLARgine 100 Unit/mL Syringe SUBQ SCH (22:04)
[2016-03-30] VITALS (8 sets, daily range): BP systolic 114–154; BP diastolic 61–72; PULSE 66–82; RESP 16–18; O2SAT 97–99
[2016-03-30] MEDS: Heparin 5,000 Unit/mL Inj SUBQ SCH ×3 (03:08→18:22)
[2016-03-30] MEDS: Hydrocortisone 50 mg/mL 2 mL Inj IVPUSH SCH ×2 (03:08→12:23)
--- NOTE | 2016-03-30 05:22 | NUR ---
Mentation/Blood Sugars Patient alert and oriented overnight. Cooperative and appropriate with care. Speaking clearly with nursing staff. Blood sugar 371 at bedtime, 4 units correctional insulin given per protocol. Continue to monitor.
[2016-03-30] MEDS: Insulin LISPRO 300 Unit/3 mL Inj SUBQ SCH ×4 (08:58→20:45)
[2016-03-30] MEDS: Piperacillin-Tazo 3.375 Gm Inj 3.375 GM in Dextrose 5% Minibag Plus 50 ML IV SCH ×2 (09:26→20:45)
[2016-03-30 11:20] LABS: Mean Corpuscular Hemoglobin 30.5 pg (27.0-35.0); Mean Corpuscular Volume 94.8 fL (81-100)
[2016-03-30] MEDS ORDERED: Insulin GLARgine 100 Unit/mL Syringe SUBQ ONE (12:25)
--- NOTE | 2016-03-30 13:40 | NUR ---
Mentation/Oxygen Patient continues to increase in responsiveness, AOx3, aware and coherent to all medications and plans of care. Blood Sugars continue to increase this shift. MD notified. Oxygen decreased to 4L pt satting at 96%.
--- NOTE | 2016-03-30 13:54 | PCM.PNMED ---
Subjective Date of Service Mar 30, 2016 Subjective No cough or dyspnea. No chest or abdomen pain. No diarrhea Exam Vital Signs Vital Sign - Last Date Time Temp Pulse Resp B/P Pulse Ox O2 Delivery O2 Flow Rate FiO2 03/30/16 11:13 36.9 82 18 124/61 98 Nasal Cannula 6.00 03/27/16 17:00 70 Intake and Output 03/29/16 03/29/16 03/30/16 Cumulative From/Thru 15:00 23:00 07:00 03/27/16 12:49 - 03/30/16 05:35 Intake Total 370 ml 2644 ml 7462 ml Output Total 500 ml 875 ml 2475 ml Balance -130 ml 1769 ml 4987 ml Intake Oral 370 ml 280 ml 650 ml IV Total 2364 ml 6812 ml Output Urine Total 500 ml 875 ml 2475 ml # Bowel Movements 2 Exam Alert and oriented 3. Able to speak. No distress. Anicteric sclerae, symmetric pupils Oropharynx unremarkable Lungs are clear with scattered rhonchi but normal effort and rate Heart is regular without murmur gallop or rub. Abdomen is distended but nontender. Extremities with 1+ edema. Radial pulses IVs and Medications Medications Reviewed: Medications were reviewed in detail Lab and Diagnostics Result Diagram: 03/30/16 1008 03/30/16 1008 Assessment & Plan 1. Pneumonia. Presumed HCAP. POA. This is improved dramatically overnight. We will continue on the current antimicrobial regimen. There is no specific microbiologic data to change our course. Secretions are much better. 2. Acute hypoxic respiratory failure. POA. Largley resolved. DO NOT INTUBATE. Patient continues to improve. We will anticipate only supplemental oxygen at this point. 3. Metastatic prostate cancer. POA. Continue his current pain regimen . He is stable now on his baseline meds. 4. Atrial fibrillation, chronic. POA. Stable. Follow clinically. 5. Hypertension. POA. Stable. Follow clinically. 6. Obstructive sleep apnea. POA. Noninvasive pressure ventilation will be used only clinically denied for his acute hypoxic respiratory failure. 7. Hyperglycemia. POA. Will increase patient's nutritional lispro and correctional lispro. We will also add a larger dose of Lantus insulin again today. 8. Acute kidney injury. This is new in the last 24 hours. The patient was given vancomycin. At this point his fluid status appears to be fairly good. We will stop the vancomycin and follow clinically. Follow his renal indices and continue fluid resuscitation. We will check urine for eosinophils. The Cr is stable today at a plateau. Will give some IVF and follow clinically. Discharge planning. The patient's family will look at [facility] for discharge in the next day or two. Pain Evaluation: Adequate Pain Control VTE Mechanical Devices: Intermittant Pneumatic CD Resuscitation Status: DNR/DNI:Do Not Resuscitate/Intubate Time spent 30 minutes Nirmal Mooney MD Mar 30, 2016 13:54
--- NOTE | 2016-03-30 14:07 | NUR ---
Social Work: Continued Discharge Planning D: Pt discussed in morning rounds. Pt is not medically stable for discharge at this time but is improving. believes pt will be ready for discharge tomorrow pending placement. Pt came from [facility] and family does not wish for him to return. t/c to [facility] at [facility]; They can accept him with Dr. Ulloa to follow pending a bed and [employer] Authorization. BROKE BEATER OPERATOR met w/ pt's daughter at bedside to discuss dcp. She is very upset with the idea that pt may be ready to go tomorrow. She is trying to get the pt seen by [facility] for a bedside assessment for possible admission. She will call them to inquire if they can complete this today. BROKE BEATER OPERATOR informed her that if [facility] is unable to take him tomorrow, she would need to consider [facility]. BROKE BEATER OPERATOR requested that she tour [facility] today if she wished to complete a tour. She states that she will do this. A: Pt who previously lived at home alone. P: Anticipate pt to either discharge to [facility] pending bedside assessment or [facility] with [facility] to follow; BROKE BEATER OPERATOR to meet with daughter again to discuss outcome of daughter's conversation with [facility]. RETA Anderson
[2016-03-30] MEDS: Insulin GLARgine 100 Unit/mL Syringe SUBQ SCH (19:44)
[2016-03-31] VITALS (8 sets, daily range): BP systolic 86–163; BP diastolic 72–87; PULSE 70–84; RESP 15–22; O2SAT 97–100
[2016-03-31] MEDS: Heparin 5,000 Unit/mL Inj SUBQ SCH ×4 (03:43→23:47)
[2016-03-31] MEDS ORDERED: levoFLOXacin Inj 750 MG in IV Premix 1 EACH IV SCH (08:30)
[2016-03-31] MEDS: predniSONE 20 mg Tablet PO SCH (08:53)
[2016-03-31] MEDS: Insulin LISPRO 300 Unit/3 mL Inj SUBQ SCH ×4 (08:53→21:58)
[2016-03-31] MEDS: Piperacillin-Tazo 3.375 Gm Inj 3.375 GM in Dextrose 5% Minibag Plus 50 ML IV SCH ×2 (09:55→20:48)
[2016-03-31] MEDS ORDERED: 0.9% Sodium Chloride 250 ML ONE (10:11)
[2016-03-31 11:46] LABS: Mean Corpuscular Hemoglobin 30.1 pg (27.0-35.0)
[2016-03-31] MEDS: 0.9% Sodium Chloride 500 ML IV ONE ×2 (12:11→13:45)
--- NOTE | 2016-03-31 12:25 | DRSVH ---
PROCEDURE: X-RAY CHEST ONE VIEW, PORTABLE ([id number]) INDICATIONS: 80 year-old male with left lower lobe pneumonia. TECHNIQUE: One view of the chest was acquired. COMPARISON: [facility], CR, XR CHEST 1VW (PORTABLE), 03/27/2016, 19:42. [facility], CR, XR CHEST 1VW (PORTABLE), 03/27/2016, 16:52. [facility], CR, XR CHEST 1VW (P ORTABLE), 03/27/2016, 13:21. FINDINGS: Surgical changes and devices: Left chest wall single lead pacemaker is again noted. Lungs and pleura: No pleural effusions or pneumothorax. There is increased retrocardiac opacity. Mediastinum: Mediastinal contours appear normal. Moderate cardiomegaly is unchanged. There is aortic atherosclerosis. Bones and chest wall: No suspicious bony lesions. Overlying soft tissues appear unremarkable. IMPRESSION: 1. Increased retrocardiac atelectasis, aspiration, or pneumonia. 2. Moderate cardiomegaly as before. Dictated by: Alexis Contreras M.D. on 03/31/2016 at 12:24 Approved by: Alexis Contreras M.D. on 03/31/2016 at 12:24
--- NOTE | 2016-03-31 13:36 | NUR ---
Social Work Note: Readiness for Discharge Data& Assessment: Per MD in morning rounds, pt is getting closer to being medically ready for discharge. SW confirmed with Karey from [facility] that they are able to accept pt when he is medically ready. SW spoke with pt daughter who explained [facility] is no longer a possible discharge plan and pt will go to [facility] for rehab when discharged. SW reminded pt daughter that since pt has [employer] Medicare, they will review pt records when discharge orders are complete and they can either approve or deny the SNF stay. Pt daughter confirmed understanding. No other needs identified at this time. SW to continue to follow if any needs arise. Plan: Anticipated discharge to [facility] SNF for rehab when medically ready pending [employer] Authorization. No other discharge needs identified. SW to continue to follow if any needs arise. RETA Brandon
--- NOTE | 2016-03-31 13:46 | NUR ---
Evaluation completed. Please go to "Notes" then click on "Assessments and Notes" (bottom left corner of screen). Then select appropriate discipline tab on top of screen.
--- NOTE | 2016-03-31 13:46 | PCM.PNMED ---
Subjective Date of Service Mar 31, 2016 Subjective He is also more productive cough as he mobilizes secretions. No dyspnea. He denies fever or chills. No issues with pain control. No abdominal pain nausea or vomiting. He did have a bloody nose secondary to dry mucosa from his oxygen. Exam Vital Signs Vital Sign - Last Date Time Temp Pulse Resp B/P Pulse Ox O2 Delivery O2 Flow Rate FiO2 03/31/16 11:42 36.9 78 16 148/77 98 Nasal Cannula 4.00 03/27/16 17:00 70 Intake and Output 03/30/16 03/30/16 03/31/16 Cumulative From/Thru 15:00 23:00 07:00 03/27/16 12:49 - 03/31/16 04:27 Intake Total 1151 ml 518 ml 9131 ml Output Total 750 ml 1200 ml 4425 ml Balance 401 ml -682 ml 4706 ml Intake Oral 320 ml 240 ml 1210 ml IV Total 831 ml 278 ml 7921 ml Output Urine Total 750 ml 1200 ml 4425 ml # Bowel Movements 1 3 Exam Alert and oriented 3. Able to speak. No distress. Anicteric sclerae, symmetric pupils Oropharynx unremarkable Lungs are clear with scattered rhonchi but normal effort and rate Heart is regular without murmur gallop or rub. Abdomen is distended but nontender. Extremities with 1+ edema. Radial pulses IVs and Medications Medications Reviewed: Medications were reviewed in detail Lab and Diagnostics Result Diagram: 03/31/16 1135 03/30/16 1008 Assessment & Plan 1. Pneumonia. POA. He continues to improve. He is initially covered for age. It seems quite possible this is more an aspiration and pneumonia. Had stopped his vancomycin several days ago and will stop levofloxacin today and then stick with only Zosyn. We will follow him closely . 2. Acute hypoxic respiratory failure. POA. Largley resolved. DO NOT INTUBATE. Patient continues to improve. We will anticipate only supplemental oxygen at this point. The patient is weaning his oxygen needs actively. 3. Metastatic prostate cancer. POA. Continue his current pain regimen . He is stable now on his baseline meds. 4. Atrial fibrillation, chronic. POA. Stable. Follow clinically. 5. Hypertension. POA. Stable. Follow clinically. 6. Obstructive sleep apnea. POA. Noninvasive pressure ventilation will be used only clinically denied for his acute hypoxic respiratory failure. 7. Hyperglycemia. POA. The patient remains significantly hyperglycemic. We will give an additional Lantus dose now and increase his evening Lantus.. 8. Acute kidney injury. Patient's urine eos are still pending. We will give a lower volume today with saline at 500 mg bolus over several hours. His creatinine today is pending. He seems to have plateaued in the mid to high threes over the last 2 days. He still has a good urine output. Simplify his antibiotic regimen today. Discharge planning. The patient will likely be going to [facility] in the next 1 or 2 days. We will aim to stabilize creatinine and hyperglycemia to some degree prior to discharge. Pain Evaluation: Adequate Pain Control VTE Mechanical Devices: Intermittant Pneumatic CD Resuscitation Status: DNR/DNI:Do Not Resuscitate/Intubate Time spent 30 minutes Nirmal Mooney MD Mar 31, 2016 13:46
[2016-03-31] MEDS ORDERED: Insulin GLARgine 100 Unit/mL Syringe SUBQ ONE (13:50)
[2016-03-31] MEDS ORDERED: Calcium GLUCO 10% (Gm) 1 Gm/10 mL 50 mL Inj IV ONE (15:05)
[2016-03-31] MEDS ORDERED: Calcium GLUCO 10% (Gm) Inj 2 GM in Dextrose 5% 100 ML IV ONE (15:15)
--- NOTE | 2016-03-31 17:16 | PROG NOTE ---
[address] [address] PROGRESS NOTE PATIENT: VANESSA DOSS : 1935 MR#: [id number] ADMIT: 03/27/2016 JOB ID: [id number] DATE: 03/31/2016 SUBJECTIVE: The patient is an 80-year-old gentleman treated by Dr. Perea for metastatic prostate cancer, admitted on March 27, 2016 with sepsis syndrome due to an atypical left lower lobe pneumonia. All cultures from blood, urine and nose have been negative to date. He is on antibiotic coverage with Levaquin 750 mg IV every 48 hours and piperacillin/tazobactam 3.375 g IV every 12 hours. He is also on prednisone 40 mg by mouth daily. His family felt that he was improving, but overnight he has had increased wheezing and shortness of breath. He is still very weak, barely able to lift his food to his mouth. He has been afebrile since March 28, 2016, when he had a maximum fever of 38.8 degrees centigrade. OBJECTIVE: Vitals: T 36.5, P 70, R 18, BP 154/81, O2 saturation 99% on 4 L oxygen by nasal cannula. HEENT: Conjunctivae pink. Mucous membranes moist. No oral lesions. Chest: He has expiratory wheezes bilaterally, most prominently on the left where he also has a few scattered crackles. Cardiac exam: Regular rate and rhythm with normal S1, S2. No murmurs or rubs appreciated. Abdomen is large, soft, nontender. Active bowel tones. Extremities: No edema. 1+ distal pulses. No calf tenderness. LABORATORIES: WBC 7.1, hemoglobin 11.7, hematocrit 36.3%, platelets 144,000. Sodium 140, potassium 3.7, BUN 70, creatinine 2.94 (rising). Glucose 404, AST 29, ALT 12, alkaline phosphatase 69, total protein 5.3, albumin 1.9. ASSESSMENT AND PLAN: 1. Metastatic prostate cancer: The patient is on the hormonal agent abiraterone that is not immunosuppressive, but does receive concurrent treatment with prednisone 5 mg twice daily, which can be immunosuppressive. His hormonal agent is on hold during this hospitalization and his steroid dosing has been adjusted, currently prednisone 40 mg by mouth daily. With this, blood sugar has been poorly controlled. Adjust per the hospitalist team. 2. Atypical left lower lobe pneumonia: Cultures have been negative. Chest film on March 27, 2016 showed a left basilar opacity and simple pneumonia or aspiration. He has diffuse wheezes and crackles at the left base consistent with his diagnosis. He is on 4 L oxygen by nasal cannula. Repeat single-view chest film today. Continue broad antibiotic coverage per the hospitalist team. 3. Renal insufficiency: The patient's baseline creatinine on March 27, 2016 was 0.94, 2.94 on March 30, 2016. Unclear etiology. Likely due to either medication effect, or diuresis with his poorly controlled blood sugar. Recommend this issue be addressed by the hospitalist team.
--- NOTE | 2016-03-31 18:02 | NUR ---
Blood Glucose ordered new Lantus insulin 10units for blood glucose control, I admin. at ~1350. Pt. no longer on droplet precautions, Pt. was given potassium, magnesium IV for low electrolytes. Pt. was also given IV calcium gluco for low calcium. Pt. is in room with family eating dinner and socializing.
[2016-03-31] MEDS: Insulin GLARgine 100 Unit/mL Syringe SUBQ SCH (21:58)
[2016-04-01] VITALS (8 sets, daily range): BP systolic 153–188; BP diastolic 69–82; PULSE 7–79; RESP 20–24; O2SAT 96–98
--- NOTE | 2016-04-01 05:22 | NUR ---
oxygen pt oxygen down to 2L NC, SALES AND LEASING CONSULTANT in place, pt with some coughing with intake, ice chips don't appear to bug him as much. turning pt in bed he denies any SOB, tele bigeminal V-paced rate 80s
[2016-04-01] MEDS: predniSONE 20 mg Tablet PO SCH (07:56)
[2016-04-01] MEDS: Piperacillin-Tazo 3.375 Gm Inj 3.375 GM in Dextrose 5% Minibag Plus 50 ML IV SCH ×2 (07:56→20:32)
[2016-04-01] MEDS: Insulin LISPRO 300 Unit/3 mL Inj SUBQ SCH ×4 (07:56→22:07)
[2016-04-01] MEDS: Heparin 5,000 Unit/mL Inj SUBQ SCH ×2 (07:57→17:31)
[2016-04-01] MEDS ORDERED: Potassium Chloride 20 mEq/15 mL 15mL Oral Soln PO ONE (08:00)
[2016-04-01 08:08] LABS: Mean Corpuscular Hemoglobin 32.5 pg (27.0-35.0); Mean Corpuscular Volume 96.4 fL (81-100)
[2016-04-01] MEDS ORDERED: KCl 40 mEq/100 mL (CENTRAL) 40 MEQ in IV Premix 1 EACH IV ONE (10:50)
[2016-04-01] MEDS ORDERED: KCl 40 mEq/500 mL D5W (K < 3 & Creat <2) IV ONE (11:00)
--- NOTE | 2016-04-01 11:42 | NUR ---
NUTRITION FOLLOW UP: ASSESS: 80 YO M admitted with pneumonia. Diet downgraded to full liquids, honey thick today per speech therapy. Pt has had poor PO intake. PMHx: Metastatic prostate cancer with extensive bony metastases, severe pain, CAD, A-fib, YVONNE, HTN. DIET: Full liquids, honey thick. PO intake 0-75%. LABS: Reviewed. Na 149, K+ 3.0, BUN 67, Cr 2.68, Glu 244, Ca 6.6, Alb 2.4 MEDICATIONS: Reviewed. Insulin, Prednisone, Fentanyl. GI: 3 BM /2. SKIN: No issues reported. ANTHROPOMETRICS: Current Wt: 108.4 kg, BMI: 34.3 kg/m2. Admit weight: 107.0 kg. IBW: 75.5 kg (142% IBW). Wt loss 1.5 kg X 9 months (1.4% of BW = not significant) ESTIMATED NEEDS (OBESITY, CANCER, RENAL DISEASE): Calories: 6420-0448 kcal/day (25-30 kcal/kg IBW) Protein: 91-113 g/day (1.2-1.5 g/kg IBW) NUTRITION DIAGNOSIS: 1) Inadequate oral intake related to metastatic prostate cancer pain, respiratory difficulties, as evidenced by NPO status, 1.5 kg weight loss x 9 months.---PERSISTS. INTERVENTION: 1) Diet advancement per speech therapy. MONITOR/EVALUATE: Diet advance/tolerance, PO intake, labs, GI/nutrition status. Follow per high nutrition risk guidelines.
--- NOTE | 2016-04-01 13:57 | PCM.DIMED ---
Discharge Instructions Date of Service Apr 01, 2016 Dates of Hospitalization Mar 27, 2016 at 18:04 Discharge Diagnosis Discharge Diagnosis 1. Aspiration pneumonia, improved 2. Acute hypoxic respiratory failure, resolved 3. Metastatic prostate cancer 4. Hypertension. Stable 5. Atrial fibrillation, chronic 6. Obstructive sleep apnea, chronic. 7. Acute kidney injury, 8. Diabetes mellitus 2 uncontrolled, improving. 9. Hypokalemia, improving. Diet Diabetic Activity No restrictions Patient Instructions Follow-up Provider: Jessica Perea MD Follow-up with PCP in: 1 week Nirmal Mooney MD Apr 01, 2016 13:57
[2016-04-01] MEDS ORDERED: METH5TAB88 PO (14:00)
[2016-04-01] MEDS ORDERED: AMOX-366 PO (14:00)
[2016-04-01] MEDS ORDERED: FENT1PAT6 TRANSDERM (14:00)
[2016-04-01] MEDS ORDERED: OXYC5TAB72 PO (14:00)
[2016-04-01] MEDS ORDERED: FENT1PAT7 TRANSDERM (14:00)
--- NOTE | 2016-04-01 14:05 | PCM.DIMED ---
Discharge Instructions Date of Service Apr 01, 2016 Dates of Hospitalization Mar 27, 2016 at 18:04 Discharge Diagnosis Discharge Diagnosis 1. Aspiration pneumonia, improved 2. Acute hypoxic respiratory failure, resolved 3. Metastatic prostate cancer 4. Hypertension. Stable 5. Atrial fibrillation, chronic 6. Obstructive sleep apnea, chronic. 7. Acute kidney injury, 8. Diabetes mellitus 2 uncontrolled, improving. 9. Hypokalemia, improving. Diet Diabetic Activity No restrictions Patient Instructions Follow-up plan Patient needs BMP and protime Follow-up Provider: Jessica Perea MD Follow-up with PCP in: 1 week Additional Information We will arrange for initiation of hospice so that you can try to return home with hospice support in the next short period of time Nirmal Mooney MD Apr 01, 2016 14:04
--- NOTE | 2016-04-01 15:01 | NUR ---
Mentation/Electrolytes/Diet Pt AAOx3, very pleasant and conversant today. 40mEq PO potassium given for K+ 3.0. Per NA-C, pt had difficult time with nectar thick fluids today, was coughing and reported he was not comfortable with the consistency. ENTRY LEVEL MECHANICAL ENGINEER notified and re-evaulated pt, see note. Pt to d/c to SNF today.
--- NOTE | 2016-04-01 15:04 | NUR ---
Left message with Krystyna Mo CM at [facility], patient has orders and is planning for discharge today to [facility]. Updated PHOTO MASK PROCESSOR Addendum: 04/01/16 at 1507 by MELINDA MENDEZ CM [facility] is working on clearing a room for this patient but at this time there is no bed. They need to make some room moves and Catrina Lee construction project coordinator is working on this now. If this does not happen tonight she will take patient first thing in the morning. Updated PHOTO MASK PROCESSOR
--- NOTE | 2016-04-01 16:45 | NUR ---
Social Work Note: Continued Discharge Planning Data& Assessment: Per MD pt is medically ready to discharge. [facility] authorization has not been obtained. Pt daughter provided with [facility] Roofer Metal number to contact for further information. Per UR specialist, pt's case is now being reviewed by [facility] Director. RN, pt, pt daughter, MD all updated. Pt daughter provided with phone number. Pt daughter denies any needs at this time. SW to follow up with [facility], pt and pt daughter tomorrow regarding discharge planning. Plan: Anticipated discharge to [facility] pending [facility] authorization. SW to follow up with [facility], pt and pt daughter tomorrow regarding discharge planning. RETA Brandon
--- NOTE | 2016-04-01 19:51 | PROG NOTE ---
[address] [address] PROGRESS NOTE PATIENT: VANESSA DOSS : 1935 MR#: [id number] ADMIT: 03/27/2016 JOB ID: [id number] DATE: 04/01/2016 DIAGNOSES: 1. Current admission for severe left lower lobe pneumonia associated with sepsis syndrome. 2. Acute kidney injury. 3. Metastatic prostate cancer. 4. Severe deconditioning. SUBJECTIVE: The patient was deeply asleep as I entered the room. He woke up, and he is awake and oriented x3. He is profoundly weak, but his cough and hypoxemia have improved. He is now afebrile. OBJECTIVE: Resting comfortably in bed but appears very tired. Alert and oriented x3. Blood pressure 188/77, heart rate 78, temperature 36.8, O2 saturation 96% on room air. LABORATORY DATA: Creatinine leslie to peak at 2.94 two days ago but has trended down since then to 2.68 today. BUN 67. Calcium remains low. Blood sugar has been persistently high. Leukocytosis has resolved. Urine eosinophilic smear is pending. Blood cultures have remained negative. Influenza screen was negative. IMPRESSION AND RECOMMENDATIONS: 1. Pneumonia and sepsis syndrome has responded well to antibiotic therapy. He is currently on Zosyn only, and I wonder if we should replace that with levofloxacin given that he has developed acute kidney injury which could be related to Zosyn-induced interstitial nephritis. 2. With regard to his prednisone, it is down to 40 mg daily, but at the time of discharge the receiving facility should have cleared tapering instructions. Given that his abiraterone will be on hold for now, he does not need to stay on prednisone. I suggest a two-week tapering course down to 0. 3. Metastatic prostate cancer. The treatment of this will be currently on hold until his overall function improves, and I will see him in followup in clinic.
[2016-04-01] MEDS: Insulin GLARgine 100 Unit/mL Syringe SUBQ SCH (22:07)
[2016-04-02] VITALS (8 sets, daily range): BP systolic 131–180; BP diastolic 61–79; PULSE 66–81; RESP 17–26; O2SAT 95–98
[2016-04-02] MEDS: Heparin 5,000 Unit/mL Inj SUBQ SCH ×4 (00:44→23:03)
--- NOTE | 2016-04-02 06:23 | NUR ---
respiratory/voiding pt on RA tolerating all night SpO2 mid to high 90s, pt with come productive coughing, voiding per urinal, frequent small amounts, pt having one soft incontinent stool. tele V-Paced with PVCs beats
[2016-04-02] MEDS: predniSONE 20 mg Tablet PO SCH (09:37)
[2016-04-02] MEDS: Piperacillin-Tazo 3.375 Gm Inj 3.375 GM in Dextrose 5% Minibag Plus 50 ML IV SCH ×2 (09:38→22:31)
[2016-04-02] MEDS: Insulin LISPRO 300 Unit/3 mL Inj SUBQ SCH ×4 (09:42→22:00)
--- NOTE | 2016-04-02 10:00 | NUR ---
Spoke with Nidia Mo CM at [facility] [phone], last night her MD did not think patient was medically ready to go. She had an updated note this morning which she gave to the MD she has on this morning. The MD came in at 9 AM and is currently reviewing patient. Nidia will be calling me as soon as there is a decision made, she has also called patient's daughter this morning and updated her as well. Updated SURFACE ROOM SHOP OPTICIAN
--- NOTE | 2016-04-02 10:55 | NUR ---
Activity This RN in room with pt when PT arrived. Changed patients bedding, brief and gown while PT worked pt. Patient up to FWW tolerated with SPO2 satting from mid 80s to 90s. Patient now resting in bed with daughter at bedside.
[2016-04-02] MEDS ORDERED: Furosemide 10 mg/mL 2 mL Inj IVPUSH ONE (13:25)
[2016-04-02 13:57] LABS: Mean Corpuscular Hemoglobin 30.5 pg (27.0-35.0); Mean Corpuscular Volume 93.6 fL (81-100)
--- NOTE | 2016-04-02 13:58 | NUR ---
Nidia Mo has approved patient for transfer to long-term today. Updated TUMBLING AND ROLLING SUPERVISOR
[2016-04-02] MEDS ORDERED: Insulin GLARgine 100 Unit/mL Syringe SUBQ ONE (15:15)
[2016-04-02] MEDS ORDERED: Potassium Chloride 20 mEq SR Tablet PO ONE (15:15)
[2016-04-02] MEDS ORDERED: Dextrose 5% 1,000 ML IV SCH (15:15)
[2016-04-02] MEDS ORDERED: Calcium GLUCO 10% (mEq) Inj 9.3 MEQ in Dextrose 5% 100 ML IV ONE (15:15)
--- NOTE | 2016-04-02 15:24 | PCM.PNMED ---
Subjective Date of Service Apr 02, 2016 Subjective Patient had limited chest pressure today. An ECG revealed only a paced rhythm. No history of chest pain. He is getting markedly improving. This followed eating 4 bites of food. No associated nausea. He did not have sweatiness ordered dyspnea either. He has had more puffiness of his arms today and his daughter is worried about fluid overload. He also had dark colored urine which looked to be blood tinged after having his Kingsley removed yesterday. Breathing is about the same. He is somewhat listless today. Exam Vital Signs Vital Sign - Last Date Time Temp Pulse Resp B/P Pulse Ox O2 Delivery O2 Flow Rate FiO2 04/02/16 11:41 36.7 72 26 131/69 95 Room Air 04/01/16 12:07 2.00 03/27/16 17:00 70 Intake and Output 04/01/16 04/01/16 04/02/16 Cumulative From/Thru 15:00 23:00 07:00 03/27/16 12:49 - 04/02/16 06:08 Intake Total 400 ml 614 ml 14613 ml Output Total 375 ml 975 ml 9475 ml Balance 25 ml -361 ml 2265 ml Intake Oral 320 ml 536 ml 2826 ml IV Total 80 ml 78 ml 8914 ml Output Urine Total 375 ml 975 ml 9475 ml # Bowel Movements 3 1 10 Exam Alert oriented 3, in no distress. Neck supple Lungs are clear normal effort Heart is regular without murmur Abdomen is soft nondistended Extremities with 1+ edema of the arms and legs. Good pedal pulses. IVs and Medications Medications Reviewed: Medications were reviewed in detail Lab and Diagnostics Result Diagram: 04/02/16 1347 04/02/16 1347 12-lead ECG Paced rhythm Assessment & Plan 1. Pneumonia. POA. He continues to improve. He is initially covered for age. It seems quite possible this is more an aspiration and pneumonia. Had stopped his vancomycin several days ago and will stop levofloxacin today and then stick with only Zosyn. No changes to current medications. . 2. Acute hypoxic respiratory failure. POA. [place]ley resolved. DO NOT INTUBATE. Patient continues to improve. We will anticipate only supplemental oxygen at this point. The patient is weaning his oxygen needs actively. 3. Metastatic prostate cancer. POA. Continue his current pain regimen . He is stable now on his baseline meds. 4. Atrial fibrillation, chronic. POA. Stable. Follow clinically. 5. Hypertension. POA. Stable. Follow clinically. 6. Obstructive sleep apnea. POA. Noninvasive pressure ventilation will be used only clinically denied for his acute hypoxic respiratory failure. 7. Hyperglycemia. POA. The patient remains significantly hyperglycemic. We will give an additional Lantus dose now and increase his evening Lantus, again today... 8. Acute kidney injury. Patient's urine eos are still pending. We will give a lower volume today with saline at 500 mg bolus over several hours. His creatinine today is pending. He seems to have plateaued in the mid to high threes over the last 2 days. He still has a good urine output. The patient's creatinine is stable today. He is slightly hypernatremic and will be hydrated with D5W overnight. 9. Hypernatremia. Will correct with D5W at 50 mils an hour. 10. General anasarca/fluid overload. Lasix IV 1. 11. Hypokalemia, replete. Discharge planning. The patient will likely be going to [facility] in the next 1 or 2 days. We will aim to stabilize creatinine and hyperglycemia to some degree prior to discharge. VTE Mechanical Devices: Intermittant Pneumatic CD Resuscitation Status: DNR/DNI:Do Not Resuscitate/Intubate Time spent 25 minutes Nirmal Mooney MD Apr 02, 2016 15:24
[2016-04-02 16:50] LABS: APPEARANCE,URINE CLOUDY (CLEAR,HAZY); COLOR,URINE BLOODY (YELLOW); OCCULT BLOOD,URINE LARGE (NEGATIVE); PH,URINE 5.5 (5.0-8.0); UROBILINOGEN,URINE NORMAL (NORMAL)
--- NOTE | 2016-04-02 17:38 | NUR ---
Social Work Note: Continued Discharge Planning Data& Assessment: Per MD pt is not medically ready for discharge at this time. MD to have pt for another night to ensure he is medically stable. SW to follow for possible discharge tomorrow if medically ready. [facility] Authorization obtained. [facility] notified. SW to continue to follow. Plan: Anticipated discharge to [facility] when medically ready. All updated and agreeable to plan. SW to continue to follow. RETA Brandon
--- NOTE | 2016-04-02 19:52 | NUR ---
Blood Pressure/Diet Patient continues to have high blood pressure. MD notified earlier in shift. Speech therapy evaluated patient, patient stated he wasn't hungry and just wanted to go home and . Patient also stated to this RN he wanted to just go home and in his own home. This RN encouraged patient to talk with his family about the choices he wanted to make for his life. Patient agreed.
[2016-04-02] MEDS ORDERED: Insulin LISPRO 300 Unit/3 mL Inj SUBQ ONE ×2 (20:45→23:10)
[2016-04-02] MEDS ORDERED: Insulin GLARgine 100 Unit/mL Syringe SUBQ SCH (21:00)
[2016-04-03] VITALS (8 sets, daily range): BP systolic 142–185; BP diastolic 52–68; PULSE 70–76; RESP 14–20; O2SAT 94–98
--- NOTE | 2016-04-03 00:42 | NUR ---
BP/blood sugar pts BG was 471 and BP 180/73 pot has D5W at 50cc/hr running for hypernatremia, pt stating he feels "icky" called received an order to stop D5W and get a STAT BMP, give 10units lispro and PO hydralazine PRN. lab into draw blood, stopped IVF and gave PO hydralazine and sub q lispro. lab called around 2200 with critical BG was 615 and Na was down to 146. 615 BG was prior to me given lispro, checked BG with finger stick and now is 497 called and received order to give scheduled 15units lantus and another 10 units lispro also start 1/2 NS at 50cc/hr. pts F/U BP 155/63, pt c/o headache at this time and gave 975mg PO tylenol. will recheck BG at 0100 (2 hours post second lispro) Addendum: 04/03/16 at 0252 by KATE NICOLE RN 0100 BG 449 called received order for another 10units sub q lispro, rechecked BG at 0230 346 gave the 10 units Addendum: 04/03/16 at 0611 alyson NICOLE RN 0430 BG down to 300
[2016-04-03] MEDS ORDERED: Insulin LISPRO 300 Unit/3 mL Inj SUBQ ONE (02:20)
--- NOTE | 2016-04-03 06:11 | NUR ---
blood pressure pts BP increasing gave 25mg po hydralazine around 0530, pt stating he is just very tired. tele v-paced rate 70s
[2016-04-03] MEDS: Piperacillin-Tazo 3.375 Gm Inj 3.375 GM in Dextrose 5% Minibag Plus 50 ML IV SCH (07:56)
[2016-04-03] MEDS: Heparin 5,000 Unit/mL Inj SUBQ SCH (07:56)
[2016-04-03] MEDS: predniSONE 20 mg Tablet PO SCH (07:56)
[2016-04-03] MEDS: Insulin LISPRO 300 Unit/3 mL Inj SUBQ SCH ×2 (08:04→12:35)
--- NOTE | 2016-04-03 09:45 | NUR ---
MARIA Signed verbal consent from family
--- NOTE | 2016-04-03 11:33 | NUR ---
Go Home Patient stated again to this RN he wants to go to his home to , wants Hospice or home health, states this is his first choice. This RN reported to
--- NOTE | 2016-04-03 12:38 | NUR ---
Hypertension Patient continues to be hypertensive. This RN administered Hydralazine at 1130 per order BP 174/66. 1154 BP 185/65, 1200 BP 199/69. This RN used manual BP Cuff at 1230 BP 182/65. Notified charge and .
[2016-04-03] MEDS ORDERED: Potassium Chloride 20 mEq SR Tablet PO ONE (12:55)
[2016-04-03] MEDS ORDERED: Calcium GLUCO 10% (mEq) Inj 9.3 MEQ in Dextrose 5% 100 ML IV ONE (12:55)
[2016-04-03] MEDS ORDERED: MeTOProlol XL 25 mg ER24 Tablet PO SCH ×2 (13:00→13:30)
--- NOTE | 2016-04-03 15:40 | NUR ---
Social Work: Continued Discharge Planning D: Pt discussed in morning rounds. Pt is medically stable for discharge. Pt is now stating to RN and MD that he wishes to go home and . Pt not previously comfort care. HARBOR MASTER met with pt and family at bedside. Pt confirms with HARBOR MASTER and family that he no longer wishes to pursue treatment and wishes to "go home and ." Pt is receptive to hospice services and paying for 24/7 care. Pt's family is expressing frustration with the pt's current statements and expressed that they do not feel they have enough time to setup hospice services for the pt. HARBOR MASTER reviewed options with the pt and family. Pt is receptive to going to [facility] for a short comfort stay to allow family time to setup hospice and equipment. Pt and family understand that it would be private pay as [facility] does not have a comfort care benefit. MD aware of plan and is writing orders. HARBOR MASTER spoke with Karey Adams at [facility]. They can accept the pt today with Laila to follow. They understand the pt will be private pay and quoted pt at $400/night. Family made aware of this and understand they will need to pay at time of admission. Transportation arranged for 5:00pm tonight. Pt, family, charge and Bedside RN aware of discharge time and plan. A: Pt who is on comfort care. P: Pt to discharge to [facility] on Comfort Care paying privately; Transportation arranged for 5:00pm. RETA Anderson Addendum: 04/03/16 at 1615 by JUDSON العراقي RETA provided referral to hosp[facility]. HARBOR MASTER spoke with Dinorah who will contact family to setup time to sign consents. Family has already had info visit. HARBOR MASTER also provided family with in-home caregiving resources as pt will likely require 24/7 care.
--- NOTE | 2016-04-03 19:23 | NUR ---
Discharge Patient discharged at approximately 1815 to [facility]. Transferred by wheelchair to [facility], discharge packet given to hazardous materials tanker driver. IV's DC'd with catheters intact Tegaderms applied, tele DC'd television production technician notified. Patient left with all belongings with family at side. This RN called to give report, sent to voicemail for admit/discharge nurse, left a voicemail with name of patient transferring, this RN name and facility name. Asked in voicemail to return call for report, left date and time of voicemail.
--- NOTE | 2016-04-04 14:55 | PCM.DC.MED ---
Discharge Summary Date of Service Apr 03, 2016 Dates of Hospitalization Date of Hospital Admission Mar 27, 2016 at 18:04 Date of Discharge: Apr 03, 2016 Providers: Admitting Physician: Nirmal Velasquez MD Primary Care Physician: Nopcp Attending Physician: Nirmal Velasquez MD Diagnosis at Time of Discharge Diagnosis at Time of Discharge 1. Aspiration pneumonia, improved 2. Acute hypoxic respiratory failure, resolved 3. Metastatic prostate cancer 4. Hypertension. Stable 5. Atrial fibrillation, chronic 6. Obstructive sleep apnea, chronic. 7. Acute kidney injury, 8. Diabetes mellitus 2 uncontrolled, improving. 9. Hypokalemia, improving. Consultations Oncology Procedures XRay, CTs & MRIs Serial chest x-rays 3 feeling a retrocardiac infiltrate. ECG 12 Lead Paced rhythm Cardiac Echo Impression None Invasive Procedures None Brief History This is an 80-year-old gentleman with a recent admission for pain control related to his metastatic prostate cancer. He was discharged on fentanyl 37.5 g transdermal to a nursing home facility about 10 days ago. He had been doing reasonable until this morning. He then became altered, had diaphoresis and fever. He did have some lethargy and a sore throat yesterday. The family was concerned and insisted on transfer to the ER. There he was found to have infiltrates, evidence of acute sepsis with profound hypotension requiring aggressive fluid resuscitation. When the patient is seen on the deshpande she is breathing in a labored fashion and difficult to arouse. Presumably some of this is sedation from analgesics given in the ED. Chest x-ray did indicate infiltrates. The patient's family is in the room. All history is obtained from them. The patient's daughter Janina who is [employer] for healthcare is quite specific on his level of care. He is DO NOT INTUBATE, DO NOT RESUSCITATE. He has had a very poor quality of life since a recent escalation of his pain leading to his previous hospital admission. BiPAP is in okay alternative for ventilation if required is noted from family tonight. If the patient is unable to give any history. Hospital Course 1. Pneumonia. POA. He continues to improve. He is initially covered for age. It seems quite possible this is more an aspiration and pneumonia. Had stopped his vancomycin several days ago and will stop levofloxacin today and then stick with only Zosyn. No changes to current medications. . 2. Acute hypoxic respiratory failure. POA. [place] resolved. DO NOT INTUBATE. Patient continues to improve. We will anticipate only supplemental oxygen at this point. The patient is weaning his oxygen needs actively. 3. Metastatic prostate cancer. POA. Continue his current pain regimen . He is stable now on his baseline meds. 4. Atrial fibrillation, chronic. POA. Stable. Follow clinically. 5. Hypertension. POA. Stable. Follow clinically. 6. Obstructive sleep apnea. POA. Noninvasive pressure ventilation will be used only clinically denied for his acute hypoxic respiratory failure. 7. Hyperglycemia. POA. The patient remains significantly hyperglycemic. We will give an additional Lantus dose now and increase his evening Lantus, again today... 8. Acute kidney injury. Patient's urine eos are still pending. We will give a lower volume today with saline at 500 mg bolus over several hours. His creatinine today is pending. He seems to have plateaued in the mid to high threes over the last 2 days. He still has a good urine output. The patient's creatinine is stable today. He is slightly hypernatremic and will be hydrated with D5W overnight. 9. Hypernatremia. Will correct with D5W at 50 mils an hour. 10. General anasarca/fluid overload. Lasix IV 1. 11. Hypokalemia, replete. Discharge planning. The patient will likely be going to [facility] in the next 1 or 2 days. We will aim to stabilize creatinine and hyperglycemia to some degree prior to discharge. Hospital course. This is a pleasant 84-year-old gentleman with known metastatic prostate cancer. He has had an acute escalation in bony pain over the last short period of time. He is currently on Duragesic and 37.5 mg transdermal every 3 days. He was at [facility] when he became acutely febrile and confused. The patient arrived in evidence of acute hypoxic respiratory failure with evidence of sepsis. He had fever and altered mental status. The patient was treated initially with broad-spectrum antibiotics for possible possible healthcare associated pneumonia and after culture data came back his therapy was narrowed. The patient does have a history of chronic atrial fibrillation and sleep apnea. He did also have a lot of difficulty with intermittent hyperglycemia while in the hospital. The patient developed evidence of acute kidney injury possibly related to antibiotics and his acute illness. Vancomycin was given for short time and then stopped. The patient's renal function began to normalize but was still abnormal at the time of discharge. He also had a Kingsley catheter. This is removed one day prior to discharge and he had some hematuria after. Urine dip was positive for blood. The patient did have mild electrolyte difficulties including hypokalemia requiring repletion and a mild hypernatremia. The patient did have a limited chest pressure on the day prior to discharge which resolved with pain medications. A lot of time was spent discussing private gnosis and natural course of the patient's illness with both the patient and various family members. There is illustrated that the progression of prostate cancer would manifest not only has progressive bony pain but also in terms of other body function deterioration. He was now that he would be at increased risk for recurrent infections, anorexia and difficulty taking caloric intake. Also generalized weakness would likely be part of the future. In addition the patient and family noted that he would likely not be walking or weightbearing the future because of his bone disease related femur pain. On the day of discharge the patient voiced that he was tired of a lot of the medical measures and really wanted to go home to be comfortable and except the natural course of his disease at his home with hospice support. Family met with the patient and ultimately licensed social worker. I was contacted by licensed social worker later in the afternoon, they indicated that the pain patient's family would like to have him sent to nursing home facility for short interval stay while they arranged for hospice and his initiation in the home. Exam Vital Signs (Last) Date Time Temp Pulse Resp B/P Pulse Ox O2 Delivery O2 Flow Rate FiO2 04/03/16 11:50 36.8 70 18 185/65 94 Room Air 04/01/16 12:07 2.00 Exam Alert oriented 3 no distress Fluent speech Anicteric sclera Lungs clear with scattered rhonchi normal effort rate Heart is irregular without murmur Abdomen soft nondistended. Extremities with 1+ edema, good pedal pulses No skin rash or lesions Test 03/27/16 13:25 03/27/16 19:30 03/28/16 01:29 03/29/16 09:10 Prothrombin Time 25.9sec (8.1-12.5) Prothromb Time International Ratio 2.38ratio Activated Partial Thromboplast Time 33.0sec (22.8-33.0) Lactic Acid Level 1.7mmol/L (0.4-2.0) Phosphorus Level 2.0mg/dL (2.5-4.9) Magnesium Level 2.1mg/dL (1.6-2.6) Troponin T < 0.010ug/L (0.0-0.011) Pro-B-Type Natriuretic Peptide 2834pg/mL (0-486) Urine Legionella pneumophilia Ag Negative (Negative) Neutrophils (%) (Auto) 86.9% (40-74) Lymphocytes (%) (Auto) 8.2% (14-46) Monocytes (%) (Auto) 4.5% (4-12) Eosinophils (%) (Auto) 0.1% (0-5) Basophils (%) (Auto) 0.1% (0-3) Hold Jimenez Top Tube Received (Received) Ionized Calcium 0.92mmol/L (1.17-1.32) Test 03/29/16 14:10 03/30/16 02:30 03/31/16 13:05 04/02/16 13:47 Hemoglobin A1c 8.1% (4.8-5.6) Procalcitonin 13.96ng/mL (See Comment) Hold Urine Received (Received) White Blood Count 7.4th/mm3 (3.8-10.1) Red Blood Count 4.07mil/mm3 (4.40-5.80) Hemoglobin 12.4g/dL (13.8-17.2) Hematocrit 38.1% (41.0-50.0) Mean Corpuscular Volume 93.6fL (81-100) Mean Corpuscular Hemoglobin 30.5pg (27.0-35.0) Mean Corpuscular Hemoglobin Concent 32.5% (32.0-37.0) Red Cell Distribution Width 14.8% (12.3-15.4) Platelet Count 138bil/L (150-400) Total Bilirubin 0.5mg/dL (0.0-1.2) Aspartate Amino Transf (AST/SGOT) 18U/L (0-50) Alanine Aminotransferase (ALT/SGPT) 13U/L (0-44) Alkaline Phosphatase 67U/L (25-160) Total Protein 4.9g/dL (6.4-8.4) Albumin 2.2g/dL (3.4-5.0) Test 04/02/16 15:36 04/03/16 06:37 Urine Color Bloody (YELLOW) Urine Appearance Cloudy (CLEAR,HAZY) Urine pH 5.5 (5.0-8.0) Urine Specific [place] 1.010 (1.003-1.035) Urine Protein 30mg/dL (NEG,TRACE) Urine Glucose (UA) 500mg/dL (NEGATIVE) Urine Ketones Negativemg/dL (NEGATIVE) Urine Occult Blood Large (NEGATIVE) Urine Nitrite Negative (NEGATIVE) Urine Bilirubin Negative (NEGATIVE) Urine Urobilinogen Normalmg/dL (NORMAL) Urine Leukocyte Esterase Negative (NEGATIVE) Urine RBC >50/hpf (0-2) Urine WBC 0-5/hpf (0-5) Urine Epithelial Cells Occasional/hpf (NONE-MOD) Urine Crystals None seen (NONE SEEN) Urine Bacteria None/hpf (NONE-FEW) Urine Hyaline Casts None/lpf (NONE) Urine Granular Casts None seen (NONE SEEN) Urine Waxy Casts None seen (NONE SEEN) Urine Red Blood Cell Casts None seen (NONE SEEN) Urine White Blood Cell Casts None seen (NONE SEEN) Urine Mucus None seen (None Seen) Urine Trichomonas None seen (NONE SEEN) Urine Yeast None (NONE SEEN) Urinalysis Comment None Urine Culture Reflexed Not indicated Sodium Level 152mEq/L (134-144) Potassium Level 3.0mEq/L (3.5-5.2) Chloride Level 111mEq/L (97-108) Carbon Dioxide Level 28mmol/L (18-29) Blood Urea Nitrogen 64mg/dL (8-27) Creatinine 2.80mg/dL (0.76-1.27) Estimat Glomerular Filtration Rate 23mL/min (>59) Glucose Level 196mg/dL (60-99) Calcium Level 7.1mg/dL (8.5-10.1) Discharge Medications Discharge Medications Abiraterone Acetate (Zytiga) 250 Mg Tablet 1,000 MG PO DAILY (Reported) Amoxicillin/Clav K 875-125 mg (Augmentin 875-125 mg) 1 Each Tablet 1 TABLET PO BID Prescribed by: NIRMAL VELASQUEZ MD Atorvastatin Calcium (Atorvastatin Calcium) 40 Mg Tablet 40 MG PO DAILY ( Reported) Escitalopram Oxalate (Escitalopram Oxalate) 10 Mg Tablet 10 MG PO DAILY Prescribed by: FREDO MOORE MD Fentanyl 12.5 mcg/hr Patch (Fentanyl 12.5 mcg/hr Patch) 1 Each Patch.td72 1 PATCH TRANSDERM Q3D Prescribed by: NIRMAL VELASQUEZ MD Fentanyl 25 mcg/hr Patch (Fentanyl 25 mcg/hr Patch) 1 Each Patch.td72 1 PATCH TRANSDERM Q3D Prescribed by: NIRMAL VELASQUEZ MD Finasteride (Finasteride) 5 Mg Tablet 5 MG PO DAILY (Reported) Losartan Potassium (Losartan Potassium) 50 Mg Tablet 50 MG PO DAILY (Reported) Methylphenidate (Methylphenidate) 5 Mg Tablet 5 MG PO BIDBL Prescribed by: NIRMAL VELASQUEZ MD NPH, Human Insulin Isophane (HUMulin-N U100 Insulin Vial) 100 Unit/1 Ml Vial 55 UNIT SUBQ MORNING (Reported) NPH, Human Insulin Isophane (HUMulin-N U100 Insulin Vial) 100 Unit/1 Ml Vial 35 UNIT SUBQ Evening (Reported) Prednisone (PredniSONE) 5 Mg Tab 5 MG PO BIDWM Prescribed by: FREDO MOORE MD Warfarin Sodium (Warfarin Sodium) 6 Mg Tablet 6 MG PO DAILY (Reported) As needed Acetaminophen (Acetaminophen) 325 Mg Tablet 975 MG PO Q6H PRN PRN For Pain ( Reported) Hydrocodone-Acetaminophen 5-325 mg (Hydrocodone-Acetaminophen 5-325 mg) 1 Each Tablet 1 TABLET PO BID PRN PRN For Pain Prescribed by: FREDO MOORE MD oxyCODONE (oxyCODONE) 5 Mg Tablet 5-10 MG PO Q4H PRN PRN For Moderate Pain Prescribed by: NIRMAL VELASQUEZ MD Followup Plan Disposition: [facility] Follow-up plan Patient needs BMP and protime Discharge Diet: Diabetic Discharge Activity: No restrictions Follow-up Provider: Jessica Perea MD Follow-up with PCP in: 1 week Time spent 60 minutes Nirmal Velasquez MD Apr 04, 2016 14:55
== END 2016-04-03 17:20 | DRG 871 ==
LOC: EDBD 12:39 → SED 12:39 → PCC 18:04
PROVIDERS: ADMIT Hospitalist; ATTEND Hospitalist
DX: A41.9 Sepsis, unspecified organism (principal); J69.0 Pneumonitis due to inhalation of food and vomit; J96.01 Acute respiratory failure with hypoxia; C79.51 Secondary malignant neoplasm of bone; N17.9 Acute kidney failure, unspecified; I10 Essential (primary) hypertension; I48.2 Chronic atrial fibrillation; G47.33 Obstructive sleep apnea (adult) (pediatric); E11.65 Type 2 diabetes mellitus with hyperglycemia; Z66 Do not resuscitate; Z87.891 Personal history of nicotine dependence; C61 Malignant neoplasm of prostate